=== PATIENT | female | born 1975 | race Caucasian/White ===

== ENCOUNTER 2018-11-25 05:01 | Emergency (ER) | payer OTHER ==
--- NOTE | 2018-11-25 05:35 | PDOC ---
Attending Attestation - Resident Resident Name: Monika Nathan - ED Attending Attestation I have performed the following: I have examined & evaluated the patient, The case was reviewed & discussed with the resident, I agree w/resident's findings & plan - HPI HPI: 11/25/18 05:54 Pt comes with palpitations that have been ongoing all night. She has normal vitals and sppears well. - Physicial Exam PE: 11/25/18 05:54 Normal exam - Medical Decision Making 11/25/18 05:54 EKG, CXR, home with cardiology follow up. 11/25/18 06:09 basic labs will be sent because pt has large T waves on EKG
--- NOTE | 2018-11-25 05:37 | PDOC ---
History of Present Illness - General Chief Complaint: Palpitations Stated Complaint: HEART PALPITATIONS Time Seen by Provider: 11/25/18 05:34 History Source: Patient - History of Present Illness Initial Comments: 11/25/18 05:37 The patient is a 43 year old female with no reported PMH who presents with palpitations. 1 year h/o intermittent palpitations lasting a few minutes. Since Sunday patient states she has had 2+ hour episodes of palpitations including constant palpitations overnight prompting her visit to our ED this morning. Previous EKG at PMD's office showed no concerning findings. Mother @ bedside notes mother has a h/o palpitations and AFib for which she takes a B- Corky. No other known cardiac history in family. 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 The patient denies recent weight loss, chest pain, shortness of breath, nausea, lightheadedness, syncope. Medications: none Allergy: Sulfa (childhood) Social: Denies toxic habits Surgical: Cosmetic vein removal LLE PMD: Dr. Willi Stnoe M.D. As per EMR, no prior evaluation in our ED. Past History - Past Medical History Allergies/Adverse Reactions: Allergies Allergy/AdvReac Type Severity Reaction Status Date / Time Sulfa (Sulfonamide Allergy Verified 11/25/18 05:27 Antibiotics) Home Medications: Ambulatory Orders NK [No Known Home Medication] 11/25/18 COPD: No - Suicide/Smoking/Psychosocial Hx Smoking History: Never smoked Review of Systems - Review of Systems Constitutional: No: Chills, Fever HEENTM: No: Recent change in vision Respiratory: No: Cough, Shortness of Breath Cardiac (ROS): Yes: Palpitations. No: Chest Pain, Lightheadedness, Syncope ABD/GI: No: Constipated, Diarrhea, Nausea, Vomiting *Physical Exam - Vital Signs Last Vital Signs Temp Pulse Resp BP Pulse Ox 98.1 F 76 128/81 99 11/25/18 05:25 11/25/18 05:25 11/25/18 05:25 11/25/18 05:25 - Physical Exam General Appearance: Yes: Nourished, Appropriately Dressed HEENT: positive: Normal Voice, Hearing Grossly Normal Neck: positive: Trachea midline, Supple Respiratory/Chest: positive: Lungs Clear, Normal Breath Sounds Cardiovascular: positive: S1, S2. negative: Edema, Murmur Vascular Pulses: Dorsalis-Pedis (R): 2+, Doralis-Pedis (L): 2+ Gastrointestinal/Abdominal: positive: Normal Bowel Sounds, Soft Heart Score/ECG Review - ECG Impressions Comment:: 11/25/18 06:26 EKG shows NSR HR 63, LAE, normal intervals, no deviations, no KAT/STD/TWI ED Treatment Course - LABORATORY CBC & Chemistry Diagram: 11/25/18 06:00 11/25/18 06:00 Medical Decision Making - Medical Decision Making 11/25/18 05:49 43 year old female with palpitations. VS unremarkable including no tachycardia on PE. Will obtain EKG to r/o arrythmia, CBC to r/o anemia, CMP to r/o electrolyte derangement as well as hypogylcemia, TSH to evaluate for thyroid disease. Cardiac monitoring. Reassess. 11/25/18 06:33 Call placed for CXR, only one tech on CXR and CT Scan 11/25/18 06:34 Patient reassessed @ bedside. Asx in ED. 11/25/18 06:35 EKG non-ischemic, no shortened AK (WPW), no prolonged QT, no LVH (less likely HOCM) 11/25/18 06:56 Hb 12 CMP unremarkable TSH wnL Troponin, CXR pending 11/25/18 07:00 Patient signed out to Dr. Angel (Resident) and Dr. Wu (Attending) *DC/Admit/Observation/Transfer Diagnosis at time of Disposition: Palpitations - Referrals Referrals: Willi Stone MD, MD [Primary Care Provider] - Weston Vallejo MD [Staff Physician] - - Patient Instructions - Post Discharge Activity
[2018-11-25 06:12] VITALS: TEMP 98.1; BMI 29.2
[2018-11-25 06:21] LABS: BASO % 0.4 % (0-2.0); HEMATOCRIT 38.6 % (32.4-45.2); LYMPH % 29.3 % (8-40); MCH 29.1 pg (25.7-33.7); MCHC 33.6 g/dl (32.0-36.0); MEAN CELL VOLUME 86.5 fl (80-96); MEAN PLT VOLUME 8.3 fl (7.5-11.1); MONO % 8.1 % (3.8-10.2); NEUT % 60.2 % (42.8-82.8); PLATELET COUNT 264 K/MM3 (134-434); RBC 4.46 M/mm3 (3.60-5.2); RDW 14.5 % (11.6-15.6); WHITE BLOOD COUNT 5.7 K/mm3 (4.0-10.0)
[2018-11-25 06:55] LABS: ALK PHOS 43 U/L (45-117); ANION GAP 10 MMOL/L (8-16); BILIRUBIN,TOTAL 0.2 mg/dL (0.2-1); BLOOD UREA NITROGEN 12 mg/dL (7-18); CHLORIDE 104 mmol/L (98-107); CO2 28 mmol/L (21-32); CREATININE 0.9 mg/dL (0.55-1.3); GLUCOSE,RANDOM 101 mg/dL (74-106); POTASSIUM 3.6 mmol/L (3.5-5.1); SGOT/AST 13 U/L (15-37); SGPT/ALT 14 U/L (13-61); SODIUM 141 mmol/L (136-145)
--- NOTE | 2018-11-25 07:11 | PDOC ---
*Physical Exam - Vital Signs Last Vital Signs Temp Pulse Resp BP Pulse Ox 98.1 F 76 128/81 99 11/25/18 05:25 11/25/18 05:25 11/25/18 05:25 11/25/18 05:25 ED Treatment Course - LABORATORY CBC & Chemistry Diagram: 11/25/18 06:00 11/25/18 06:00 - ADDITIONAL ORDERS Additional order review: Laboratory Results 11/25/18 06:00 Sodium 141 Potassium 3.6 Chloride 104 Carbon Dioxide 28 Anion Gap 10 BUN 12 Creatinine 0.9 Creat Clearance w eGFR 68.66 Random Glucose 101 Calcium 9.0 Total Bilirubin 0.2 AST 13 L ALT 14 Alkaline Phosphatase 43 L Total Protein 7.0 Albumin 4.0 TSH 2.39 11/25/18 06:00 RBC 4.46 MCV 86.5 MCHC 33.6 RDW 14.5 MPV 8.3 Neutrophils % 60.2 Lymphocytes % 29.3 Monocytes % 8.1 Eosinophils % 2.0 Basophils % 0.4 - RADIOLOGY Radiology Studies Ordered: Category Date Time Status CHEST PA & LAT [RAD] Stat Radiology 11/25/18 07:09 Ordered Medical Decision Making - Medical Decision Making 11/25/18 07:11 Patient signout taken from Dr. Nathan. Patient is a 43 yo female w/ no pmh who presents for evaluation of intermittent palpitations. Patient workup negative thus far, currently pending CXR and troponin for discharge. Patient EKG normal and labs otherwise grossly wnl. Patient will f/u w/ PCP (Dr. Stone) later this week for further evaluation. 11/25/18 07:31 CXR negative. Troponin negative. No concern for acute process at this time. Discharging to home. *DC/Admit/Observation/Transfer Diagnosis at time of Disposition: Palpitations - Referrals Referrals: Weston Vallejo MD [Staff Physician] - Willi Stone MD, MD [Primary Care Provider] - - Patient Instructions Printed Discharge Instructions: DI for Palpitations Additional Instructions: You were evaluated today in the ER for your symptoms. We performed cardiac, electrolyte, and X-ray evaluation with no concerning findings. Please follow-up with primary care provider later this week for further evaluation as discussed. Return to ER if any fever, chills, pain, or other concerning symptoms. - Post Discharge Activity
[2018-11-25 07:58] VITALS: BP 108/74; PULSE 70
--- NOTE | 2018-11-25 09:59 | EKG ---
Test Reason : Blood Pressure : / mmHG Vent. Rate : 063 BPM Atrial Rate : 063 BPM P-R Int : 166 ms QRS Dur : 102 ms QT Int : 390 ms P-R-T Axes : 062 055 030 degrees QTc Int : 399 ms NORMAL SINUS RHYTHM POSSIBLE LEFT ATRIAL ENLARGEMENT NONSPECIFIC ST ABNORMALITY ABNORMAL ECG WHEN COMPARED WITH ECG OF 25-NOV-2018 05:24, NO SIGNIFICANT CHANGE WAS FOUND Confirmed by AZUL MURILLO MD ([id number]) on 11/25/2018 9:58:39 AM Referred By: Confirmed By:AZUL MURILLO MD
== END 2018-11-25 07:40 | disposition home or self-care (01) ==
LOC: JER 05:01
DX: R00.2 Palpitations (principal)
CPT/HCPCS: 36415; 71045-TC-FY; 80053; 82550; 84443; 84484; 85025; 93005; 93010; 99284-25